=== PATIENT | male | born 1985 | race Caucasian/White ===

== ENCOUNTER 2016-12-09 11:42 | Emergency (ER) | payer OTHER ==
[~2016-12-09] VITALS: Wt 75.5 kg
--- NOTE | 2016-12-09 12:42 | RADRPT ---
PROCEDURE: XR Abdomen CLINICAL INDICATION: Abdominal pain TECHNIQUE: An AP supine radiograph of the abdomen was submitted. COMPARISON: None FINDINGS: The colon is moderately distended with air and stool compatible with a colonic ileus. There is no e vidence of bowel obstruction. No organomegaly or discrete mass is identified. No pathological calcification is identified. The osseous elements appear unremarkable. The lung bases are clear. IMPRESSION: Colonic ileus. Physician Sivakumar Date Time Electronically viewed and signed by Suzan Pollard Physician on 12/09/2016 12:41 RH/
--- NOTE | 2016-12-09 12:49 | ERD ---
ER Documentation Chief Complaint Date/Time DATE: 12/09/16 TIME: 12:48 Chief Complaint POSS FOREIGN BODY IN RECTUM PER PT. NEEDS MEDICAL CLEARANCE FOR BOOKING HPI This a 31-year-old male who is brought in by [employer] to be cleared for booking. The patient had put in a vibrator into his rectum a week ago but the patient says that he is already passed it out during a bowel movement. The gel wants to ensure that this foreign body is clearly out of his rectum before booking. The patient denies any abdominal pain vomiting diarrhea. The patient has the urge to have a bowel movement. He was taken to the restroom here and said he did have a bowel movement while in the ER. ROS All systems reviewed and are negative except as per history of present illness. FmHx Family History: No coronary disease Physical Exam Vitals Vital Signs Date Time Temp Pulse Resp B/P Pulse Ox O2 Delivery O2 Flow Rate FiO2 12/09/16 11:49 98.5 80 21 116/78 98 Physical Exam Const: Well-developed, well-nourished Head: Atraumatic, normocephalic Eyes: Normal Conjunctiva, PERRLA, EOMI, normal sclera, no nystagmus ENT: Normal External Ears, Nose and Mouth, moist mucus membranes. Neck: Full range of motion. No meningismus, no lymphadenopathy. Resp: Clear to auscultation bilaterally, no wheezing, rhonchi, rales Cardio: Regular rate and rhythm, no murmurs, S1 S2 present Abd: Soft, non tender x 4, non distended. Normal bowel sounds, no guarding or rebound, no pulsitile abdominal masses or bruits Skin: No petechiae or rashes, no ecchymosis , no maculopapular rash Back: No midline or flank tenderness Ext: No cyanosis, or edema, FROM x 4, normal inspection, neurovascularly intact x 4 Neur: Awake and alert, STR 5/5 x 4, sensation intact x 4, no focal findings, cerebellum intact Psych: Normal Mood and Affect Procedures/MDM PROCEDURE: XR Abdomen CLINICAL INDICATION: Abdominal pain TECHNIQUE: An AP supine radiograph of the abdomen was submitted. COMPARISON: None FINDINGS: The colon is moderately distended with air and stool compatible with a colonic ileus. There is no evidence of bowel obstruction. No organomegaly or discrete mass is identified. No pathological calcification is identified. The osseous elements appear unremarkable. The lung bases are clear. IMPRESSION: Colonic ileus. Suzan Pollard Physician Date Time Electronically viewed and signed by Suzan Pollard Physician on 12/09/2016 12:41 RH/ CC: GLADYS VERGARA DO There is no foreign body seen. The patient does not have a colonic ileus because he had a bowel movement here about 30 minutes ago. Will discharge to snf for booking Departure Diagnosis: Primary Impression: Rectal foreign body Encounter type: initial encounter Qualified Code: T18.5XXA - Rectal foreign body, initial encounter Condition: Stable Patient Instructions: Rectal Foreign Body, Removed (Adult) GLADYS VERGARA DO Dec 09, 2016 12:49
== END 2016-12-09 12:56 ==
LOC: E/R 11:42
DX: T18.5XXA Foreign body in anus and rectum, initial encounter (principal); X58.XXXA Exposure to other specified factors, initial encounter; Y92.9 Unspecified place or not applicable
CPT/HCPCS: 74000